=== PATIENT | male | born 1990 | race Caucasian/White ===

== ENCOUNTER → 2016-10-04 | Outpatient (CLI) | payer OTHER ==
[~2016-10-04] MED LIST: METHACHOLINE KIT (J7674) INH ONE
--- NOTE | 2016-10-04 08:52 | PFTRPT ---
Age: 25 Sex: Male Race: Height: 71.00 Inches Weight: 176.00 Lbs BSA: 2.00 METHACHOLINE CHALLENGE REPORT: ORDERING PROVIDER: JOSE Jenkins DATE OF SERVICE:10/04/16 INTERPRETATION: The study was of excellent technical quality. Some mild difficulty with effort. Under protocol, methacholine was administered. At a dose of 10 mg ( 63.875 CDUs), a 30% decline in the FEV1 was noted. The PC20 of 4.19 is significant. Flow rates returned to baseline post bronchodilator administration. IMPRESSION: Positive methacholine challenge study. MTDD
== END ==
LOC: M CARPUL 07:37
PROVIDERS: ATTEND Nurse Practitioner Adult Health
DX: R06.02 Shortness of breath (principal)